=== PATIENT | male | born 1975 | race Hispanic/Latino ===

== ENCOUNTER 2016-08-17 21:19 | Emergency (ER) | payer MEDICAID ==
[2016-08-17 21:25] VITALS: BP 117/78; PULSE 137; RESP 14; TEMP 98.2; O2SAT 96
--- NOTE | 2016-08-17 23:35 | C.PDOC ---
History Of Present Illness 41 year old male was brought to the ED by EMS after being found exhibiting "bizarre behavior" as per [facility]. Patient notes a history of Bipolar disorder and substance abuse and denies any physical complaints at this time. Time Seen by Provider: 08/17/16 23:33 Chief Complaint (Nursing): Substance Abuse History Per: Patient, EMS History/Exam Limitations: no limitations Suicide/Self Injury Attempted (Context): None Recent travel outside of the [place]: No Past Medical History Reviewed: Historical Data, Nursing Documentation, Vital Signs Vital Signs: Last Vital Signs Temp 98.2 F 08/17/16 21:21 Pulse 137 H 08/17/16 21:21 Resp 14 08/17/16 21:21 BP 117/78 08/17/16 21:21 Pulse Ox 96 08/17/16 23:35 - Medical History PMH: Bipolar Disorder, Depression Family History: States: Unknown Family Hx - Social History Hx Alcohol Use: Yes Hx Substance Use: Yes - Immunization History Hx Tetanus Toxoid Vaccination: Yes (2011) Hx Influenza Vaccination: Yes (2013) Hx Pneumococcal Vaccination: No Review Of Systems Constitutional: Negative for: Fever, Chills, Sweats Cardiovascular: Negative for: Chest Pain, Palpitations Respiratory: Negative for: Cough, Shortness of Breath Gastrointestinal: Negative for: Nausea, Vomiting, Abdominal Pain, Diarrhea Neurological: Negative for: Headache Physical Exam - Physical Exam Appears: Non-toxic, No Acute Distress, Other (Very thin white male, bald with multiple tattoos ) Skin: Warm, Dry Eye(s): bilateral: Other (Pupils are dilated ) ED Course And Treatment O2 Sat by Pulse Oximetry: 96 (room air ) Medical Decision Making Medical Decision Making: DEE, referred by [facility] for substance abuse pt increasingly agitated and insistant during ED observation prior to eval pt eloped prior to eval noted hyperkinetic, stable gait Disposition - Disposition Disposition: ELOPEMENT - ER ONLY Disposition Time: 23:35 Condition: GOOD - Clinical Impression Clinical Impression: Drug abuse - Scribe Statement The provider has reviewed the documentation as recorded by the Scribe Babita Hess All medical record entries made by the Scribe were at my direction and personally dictated by me. I have reviewed the chart and agree that the record accurately reflects my personal performance of the history, physical exam, medical decision making, and the department course for this patient. I have also personally directed, reviewed, and agree with the discharge instructions and disposition.
== END 2016-08-17 23:40 | disposition left against medical advice (07) ==
LOC: C.ER 21:19
DX: F19.10 Other psychoactive substance abuse, uncomplicated (principal); F31.9 Bipolar disorder, unspecified